=== PATIENT | male | born 1990 | race Caucasian/White ===

== ENCOUNTER 2019-07-16 09:17 | Outpatient (CLI) | payer BC, SELFPAY ==
[2019-07-17 15:31] LABS: COVID-19 RT-PCR Result NEGATIVE (Negative)
== END 2019-07-16 09:37 ==
PROVIDERS: PCP Nurse Practitioner; Visit Provider Nurse Practitioner
DX: J02.9 Acute pharyngitis, unspecified (principal); R05 Cough; R50.9 Fever, unspecified
CPT/HCPCS: U0003

== ENCOUNTER 2020-06-23 04:04 | Outpatient (CLI) | payer BC, SELFPAY ==
[2020-06-23 10:20] LABS: HCT 48.8 % (40.0-50.0); HGB 16.2 g/dL (13.5-17.5); MCH 27.4 pg (27.0-33.0); MCHC 33.2 % (32.0-36.0); MCV 82.6 fL (80-95); MPV 10.9 fL (8.0-11.0); Platelet Count 306 10^3/uL (130-400); RBC 5.91 10^6/uL (4.36-5.78); RDW 12.4 % (11.8-14.1); RDW-SD 37.6 fL; WBC 9.44 10^3/uL (4.4-10.8)
[2020-06-23 11:52] LABS: ALT 41 U/L (16-63); AST 10 U/L (15-37); Albumin 3.9 g/dL (3.4-5.0); Alkaline Phosphatase 117 U/L (46-116); Anion Gap 8.7 mmol/L (3-11); BUN 13 mg/dL (7-18); Bilirubin, Total 0.3 mg/dL (0.2-1.0); CO2 28.3 mmol/L (21.0-32.0); CREATININE 1.2 mg/dL (0.70-1.30); Calcium 9.2 mg/dL (8.5-10.1); Chloride 107 mmol/L (98-107); Ferritin 181 ng/mL (26-388); Glucose 113 mg/dL (74-106); Potassium 4.4 mmol/L (3.5-5.1); Sodium 144 mmol/L (136-145); TSH (W/Ref FT4) 2.38 uIU/mL (0.36-3.74); Total Protein 7.4 g/dL (6.4-8.2); Vitamin B12 502 pg/mL (193-986)
== END 2020-06-23 04:05 | disposition home or self-care (01) ==
LOC: LBO 04:04
PROVIDERS: PCP Nurse Practitioner; Visit Provider Nurse Practitioner
DX: I10 Essential (primary) hypertension (principal); R53.83 Other fatigue; F33.41 Major depressive disorder, recurrent, in partial remission
CPT/HCPCS: 36415; 80053; 85027; 82607; 82728; 84443

== ENCOUNTER 2020-08-29 11:51 | Outpatient (RCR) | payer BC, SELFPAY ==
--- NOTE | 2020-08-29 16:00 | HOLTER_ITS ---
APPROVED REPORT Conclusion This is a 48-hour Holter monitor ordered for indication of heart racing. The patient was in normal sinus rhythm for the majority of the recording with an average heart rate o f 85 bpm. There were no episodes of ventricular tachycardia nor any episodes of supraventricular tachycardia. There were rare PACs/PVCs. There were no episodes of atrial fibrillation, no pauses greater than 3 seconds and no evidence of hi gh degree heart block. There were 3 patient triggered events associated with chest pain/pressure none of which were associat ed with significant arrhythmia or ectopy.
== END 2020-08-31 23:59 | disposition home or self-care (01) ==
LOC: RT 11:51
PROVIDERS: PCP Nurse Practitioner; Visit Provider Nurse Practitioner
DX: R06.02 Shortness of breath (principal); R00.0 Tachycardia, unspecified
CPT/HCPCS: 93225; 93226

== ENCOUNTER 2020-08-29 15:38 | Outpatient (CLI) | payer BC, SELFPAY ==
--- NOTE | 2020-08-29 15:07 | DI.US_ITS ---
APPROVED REPORT EXAM: Comprehensive 2D, Doppler, and color-flow Echocardiogram Patient Location: Out-Patient Straddle Buggy Operator: Wilma Pena RDCS (AE) Indications: Episode of racing heart, SOB, murmur, Tachycardia Other Information Study Quality: Adequate Conclusion Left Ventricle : The left ventricle is normal size. The left ventricular systolic function is normal. The left ventricular ejection fraction is within the normal range. There is normal left ventricular wall thickness. There is normal LV segmental wall motion. The left ventricular diastolic function is normal. LVEF is 60-65%. Right Ventricle : The right ventricle is normal size. The right ventricular systolic function is norm al. Atria : The left atrium size is normal. The right atrium size is normal. Valves: There are no hemodynamically significant valvular lesions. Great Vessels : The aortic root is normal in size. The ascending aorta is normal in size. Aortic arch is normal in caliber. IVC is normal in size and collapses >50% with inspiration. Please see remainder of study for further details. Wall motion Left Ventricle The left ventricle is normal size. The left ventricular systolic function is normal. The left ventric ular ejection fraction is within the normal range. There is normal left ventricular wall thickness. T here is normal LV segmental wall motion. The left ventricular diastolic function is normal. There is no ventricular septal defect visualized. LVEF is 60-65%. Right Ventricle The right ventricle is normal size. The right ventricular systolic function is normal. Atria The left atrium size is normal. The right atrium size is normal. The interatrial septum is intact wit h no evidence for an atrial septal defect. Aortic Valve The aortic valve is normal in structure. There is no aortic valvular stenosis. No aortic regurgitatio n is present. Mitral Valve The mitral valve is normal in structure. No evidence of mitral valve stenosis. Trace mitral regurgita tion. Tricuspid Valve The tricuspid valve is normal in structure. There is no tricuspid valve stenosis. Trace tricuspid reg urgitation. Unable to assess PA pressure. Pulmonic Valve The pulmonary valve is normal in structure. There is no pulmonic valvular stenosis. There is no pulmo brice valvular regurgitation. Great Vessels The aortic root is normal in size. The ascending aorta is normal in size. Aortic arch is normal in ca liber. IVC is normal in size and collapses >50% with inspiration. Pericardium There is no pericardial effusion. 2D Dimensions IVSD d PLAX 0.98 cm M: 0.6-1.2 LV Vol A2C d MOD 94.5 mL LVPW d PLAX 0.98 cm M: 0.6 - 1.2 LV Vol A4C d MOD 106.9 mL LVID d PLAX 5.12 cm M: 4.2 - 5.8 LA vol/ BSA A2C s A-L 12.5 mL/m2 LVDs 3.40 cm M: 2.5 - 4.0 LA vol/ BSA A4C s A-L 13.2 mL/m2 Ao Root d 2.38 cm M: 3.1 - 3.7 LA Vol/ BSA Biplane s A-L 13.3 mL/m2 RA Area A4C 12.06 cm2 LA Area A4C s MOD 14.56 cm2 RA Vol/ BSA A4C s A-L 10.7 mL/m2 LA Area A2C s MOD 13.67 cm2 Ao Asc Diam d 2.61 cm M: 2.6 - 3.4 LV EF A4C MOD 60.6 % LV EF Teichholz 61.9 % LV EF A2C MOD 65.9 % LVEF (Dewey's) 62.79 % M: 52 - 72 LV EF Biplane MOD 62.8 % LV Volume 70.70 mL M: 62 - 150 SV 63.43 mL LV Volume Index 28.28 mL/m2 M: 34 - 74 SV Index 25.37 mL/m2 LV Vol Biplane MOD 101.0 mL FS 33.50 % M-Mode TAPSE 1.94 cm (M/F) >1.7 LV Diastology MV E' medial 0.105 (>0.07 m/s) E/A Ratio 1.4 LV E/e MED 8.35 (<14) MV E Vmax 0.88 (0.4-1.3 m/s) MV E' lateral 0.134 (>0.1 m/s) MV A Vmax 0.65 (0.4-1.3 m/s) LV E/e LAT 6.50 (<14) MV E/A Ratio 1.35 MV E/E' medial 8.37 MV E/E' lateral 6.55 Aortic Valve LVOT Area 2.92 cm2 AoV Area Vmax 2.08 cm2 LVOT Vmax 1.05 m/s AoV Area/ BSA (Vmax) 0.83 cm2/m2 LVOT Mean Kaden. 0.69 m/s JAN Mean Kaden. 1.83 cm2 LVOT Peak Grad 4.4 mmHg JAN Mean Kaden. Index 0.73 cm2/m2 LVOT Mean Grad 2.2 mmHg LVOT VTI 0.168 m LVOT Diam s 1.90 cm AoV Vmax 1.47 m/s Velocity Ratio 0.71 AoV Mean Kaden. 1.10 m/s AoV Peak Grad 8.7 mmHg LVOT SV 49.19 mL AoV Mean Grad 5.2 mmHg AoV VTI 0.267 m AoV Area VTI 1.84 cm2 AoV Area/ BSA (VTI) 0.74 cm/m2 Mitral Valve MV DT 173 (160-240 msec) MV PHT 50 msec MV Area PHT 4.39 cm2 MV VTI 0.173 m MV VTI Annulus 0.178 m MV Area VTI 2.91 (4.0-6.0 cm2) Pulmonary Valve PV Vmax 1.05 (0.5-1.5 m/s) RVOT Peak Gr. 3.77 mmHg PV Peak Grad 4.4 mmHg RVOT Mean Gr. 1.90 mmHg PV Mean Grad 2.6 mmHg RVOT VTI 0.187 m PV VTI 0.199 m RVOT Vmax 0.97 m/s
== END 2020-08-29 15:58 ==
PROVIDERS: PCP Nurse Practitioner; Visit Provider Nurse Practitioner
DX: R00.0 Tachycardia, unspecified (principal); R06.02 Shortness of breath; R01.1 Cardiac murmur, unspecified
CPT/HCPCS: 93306

== ENCOUNTER 2021-07-25 11:59 | Day surgery (SDC) | payer BC, MEDICAID, SELFPAY ==
[2021-07-25] MEDS: Lidocaine/Prilocaine Cream 5 GM TUBE TP (12:12)
[2021-07-25 12:19] VITALS: BP 130/78; PULSE 80; RESP 20; TEMP 36.7; O2SAT 97
[2021-07-25] MEDS: Sodium Bicarbonate 50 MEQ/50 ML VIAL (12:48)
[2021-07-25] MEDS: Lidocaine 1% Multi-Dose W/EPI 1/100,000 50 ML VIAL (12:48)
--- NOTE | 2021-07-25 12:57 | W.PM.DSUDISC ---
Discharge Plan Disposition Patient Disposition: HOME Condition: Good Discharge Details Reason For Visit: THROMBOSED HEMORRHOID Attending Provider: Etelvina Stallworth Primary Care Provider: Geena Andrea Home Meds and New Rx's Prescriptions: New dibucaine 1 % ointment 1 applic PA QID PRNQty: 56 3RF Continued D3 Plus K2 Dots 1000-90 unit-mcg tablet,disintegrating PO meclizine 25 mg tablet 25 mg PO TID Qty: 90 3RF dextroamphetamine-amphetamine 20 mg capsule,extended release 24hr 20 mg PO DAILY MDD 20mg Qty: 30 0RF dextroamphetamine-amphetamine [Adderall XR] 20 mg capsule,extended release 24hr 20 mg PO DAILY MDD 20mg Qty: 30 0RF dextroamphetamine-amphetamine 20 mg capsule,extended release 24hr 20 mg PO DAILY MDD 20mg Qty: 30 0RF bupropion HCl [Wellbutrin XL] 150 mg tablet extended release 24 hr 150 mg PO QAM Qty: 90 3RF Rx Instructions: Take with the 300mg tab for a total of 450mg daily. bupropion HCl [Wellbutrin XL] 300 mg tablet extended release 24 hr 300 mg PO QAM Qty: 90 3RF hydrocortisone acetate [Anusol-HC] 25 mg suppository 25 mg PA BID Qty: 24 1RF hydrocortisone [Anusol-HC] 2.5 % cream with perineal applicator 1 applic PA BID-QID PRN (Reason: hemorrhoids) Qty: 30 1RF Rx Instructions: Trial if no suppository available hydrocortisone acetate 30 mg suppository 30 mg PA BID Qty: 12 1RF Rx Instructions: Trial x 1 week prazosin 1 mg capsule 2 mg PO QHS Qty: 180 3RF Discharge Instructions Additional Instructions: Home Care Instructions after Rectal Surgery Pain control:? Ibuprofen 600mg 6hrs (take w/ food. Do not take on an empty stomach) and Tylenol 1000mg by mouth (ibuprofen 400-600mg) every 8 hours.? Do not take if you have ulcers or sensitivity to aspirin.? Do not take Tylenol if you have hepatitis or liver failure. Alternate the Tylenol and ibuprofen.? Take pain meds continuously for the first 72hrs.? After 72hrs, you can take as needed if you are having pain.? ? You also have a prescription for Dibucaine ointment that you can use on the incision. How to prevent constipation: The first bowel movement after surgery will be painful. Do not let yourself get constipated. Stay on a stool softener for the first two weeks after surgery. ?It is recommended that you use a fiber supplement (Metamucil, Citrucel) daily (1 tablespoon in 8 oz of water). If you do not have a bowel movement daily, use Milk of Magnesia or Miralax. ? You will have bleeding or drainage after rectal surgery; especially when you move your bowels. Use a sanitary napkin to collect the discharge. If you are passing large clots or having to change the pad more than every 4 hours, call the clinic or go to the ER. You may experience spasms in the rectal muscles. This is normal after surgery and last for about two weeks. They can become more intense with bowel movements. The best remedy is to soak in a bathtub of plain warm water- no Epsom salts, essential oil, soap,etc..? It takes about 10 minutes further the spasm to stop.? You may want to do this after BM as well. It is ok to shower. Avoid soap on the surgical area. Use a pillow to sit on. Follow a mild bland diet. Avoid alcohol, spicy food, citrus, and tomatoes. Avoid strenuous activity (running, jogging, and power walking, swimming, weight lifting) for two weeks. No lifting over 20 pounds for 2 wks. Follow up in surgery clinic in 2 weeks time: 08/14 at 1:15pm. Office: [phone] ? ? Activity:: see above Diet:: As Tolerated Discharge Orders Discharge Orders: Discharge Order (Routine); Ordered 07/25/21 Ordered By: Etelvina Stallworth
--- NOTE | 2021-07-25 22:26 | W.PM.OP ---
Date of service: 07/25/21 Time of Service: 13:00 Operative Note Operative Note DATE OF PROCEDURE: 07/25/21 PRE-OP DIAGNOSIS: Thrombosed hemorrhoid PROCEDURE: Incision and drainage of external thrombosed hemorrhoid SURGEON: Etelvina Stallworth ANESTHESIA TYPE: Local By Surgeon Refer to Anesthesia Record ESTIMATED BLOOD LOSS: 1 PATHOLOGY: none sent COMPLICATIONS: None Patient was transported to: same day Patient's condition: stable Procedure Description: Patient has a external thrombosed hemorrhoid that has not resolved in 3 weeks time. It continues to give him pain and he would like it excised. Informed consent is obtained explaining risks and benefits of the procedure including not limited to bleeding, infection, recurrence, complications of anesthesia, damage to sphincters resulting in loss of control or stricture, complications of anesthesia, and other unknown problems. Emla cream was applied to the anal area preop. Patient is then brought to the procedure room and placed in the left lateral position. The areas prepped and draped the usual sterile fashion using a Betadine scrub solution. Timeout was performed. The areas anesthetized with 10 cc of 1% lidocaine with epinephrine buffered. 1/2 inch elliptical incision is made across the thrombosed hemorrhoid with a #11 blade. The clot is expressed. The wound is irrigated. There is no further clot. There is no bleeding noted. Sterile dressing is applied. Patient tolerated procedure well without complications and transferred to same-day surgery. He was given instructions in wound care activity and warning signs. He will follow-up in 2 weeks. FMLA paperwork completed. He is instructed to use sits baths and avoid complications and take MiraLAX if needed. If he has any questions or concerns to please contact the office.
== END 2021-07-25 13:29 | disposition home or self-care (01) ==
PROVIDERS: PCP Nurse Practitioner; Visit Provider Surgery
PROC: (CPT 46083; principal; 2021-07-25 12:30)
DX: K64.5 Perianal venous thrombosis (principal)
CPT/HCPCS: 46083

== ENCOUNTER 2021-08-17 08:39 | Outpatient (CLI) | payer BC, MEDICAID, SELFPAY ==
--- NOTE | 2021-08-17 08:30 | RT.EKG_ITS ---
APPROVED REPORT Exam: Resting ECG Reason for Exam: medication monitoring Patient Location: O HR:82 bpm ECG Measurements Heart Rate 82 AXIS AR 168 P 81 QRSd 92 QRS 38 QT 363 T 32 QTc 424 Conclusion Sinus rhythm...normal P axis, V-rate 60- 99 Probable left atrial enlargement...P >50mS, <-0.10mV V1 Otherwise normal
== END 2021-08-17 08:40 | disposition home or self-care (01) ==
LOC: DI.KIM 08:40
PROVIDERS: PCP Nurse Practitioner; Visit Provider Nurse Practitioner
DX: Z51.81 Encounter for therapeutic drug level monitoring (principal)
CPT/HCPCS: 93010

== ENCOUNTER 2021-08-24 03:13 | Outpatient (CLI) | payer BC, MEDICAID, SELFPAY ==
[2021-08-24 10:09] LABS: ALT 41 U/L (16-63); AST 15 U/L (15-37); Albumin 3.9 g/dL (3.4-5.0); Alkaline Phosphatase 93 U/L (46-116); Anion Gap 7.6 mmol/L (3-11); BUN 8 mg/dL (7-18); Bilirubin, Total 0.8 mg/dL (0.2-1.0); CO2 30.4 mmol/L (21.0-32.0); CREATININE 1.1 mg/dL (0.70-1.30); Calculated LDL 108 mg/dL (<100); Chloride 104 mmol/L (98-107); Cholesterol 171 mg/dL (<200); Glucose 103 mg/dL (74-106); HDL Cholesterol 37 mg/dL (40-60); Potassium 3.6 mmol/L (3.5-5.1); Sodium 142 mmol/L (136-145); Total Protein 7.7 g/dL (6.4-8.2); Triglyceride 131 mg/dL (<150)
== END 2021-08-24 03:14 | disposition home or self-care (01) ==
LOC: LBO 03:13
PROVIDERS: PCP Nurse Practitioner; Visit Provider Nurse Practitioner
DX: Z13.220 Encounter for screening for lipoid disorders (principal)
CPT/HCPCS: 36415; 80053; 80061

== ENCOUNTER 2022-04-24 02:09 | Outpatient (CLI) | payer OTHER, MEDICAID, SELFPAY ==
[2022-04-24 11:05] LABS: HGB 16.4 g/dL (13.5-17.5); MCH 26.7 pg (27.0-33.0); MCHC 32.8 % (32.0-36.0); MCV 81 fL (80-95); MPV 10.9 fL (8.0-11.0); Platelet Count 318 10^3/uL (130-400); RDW 12.6 % (11.8-14.1); RDW-SD 36.8 fL; WBC 8.21 10^3/uL (4.4-10.8)
[2022-04-24 11:15] LABS: RBC 6.15 10^6/uL (4.36-5.78)
[2022-04-24 12:05] LABS: Iron 81 ug/dL (65-175); Total Iron Binding Capacity 270 ug/dL (250-450)
[2022-04-24 12:18] LABS: ALT 40 U/L (16-63); AST 16 U/L (15-37); Albumin 4.1 g/dL (3.4-5.0); Alkaline Phosphatase 106 U/L (46-116); Anion Gap 10.8 mmol/L (3-11); BUN 8 mg/dL (7-18); Bilirubin, Total 0.6 mg/dL (0.2-1.0); CO2 26.2 mmol/L (21.0-32.0); CREATININE 1.1 mg/dL (0.70-1.30); Calcium 9.4 mg/dL (8.5-10.1); Chloride 105 mmol/L (98-107); Estimated GFR 92.04 (mL/min/1.73m2); Ferritin 144 ng/mL (26-388); Glucose 119 mg/dL (74-106); Potassium 3.9 mmol/L (3.5-5.1); Sodium 142 mmol/L (136-145); TSH (W/Ref FT4) 2.25 uIU/mL (0.36-3.74); Total Protein 7.9 g/dL (6.4-8.2); Vitamin B12 1458 pg/mL (193-986)
[2022-04-25 12:38] LABS: ANA Interpretation Negative (Negative)
== END 2022-04-24 02:10 | disposition home or self-care (01) ==
LOC: LBO 02:09
PROVIDERS: PCP Nurse Practitioner; Referring Provider Nurse Practitioner; Visit Provider Nurse Practitioner
DX: R20.9 Unspecified disturbances of skin sensation (principal); R42 Dizziness and giddiness; R53.83 Other fatigue
CPT/HCPCS: 36415; 80053; 85027; 82607; 82728; 83540; 83550; 84443; 86038

== ENCOUNTER 2022-07-31 04:17 | Outpatient (CLI) | payer OTHER, MEDICAID, SELFPAY ==
[2022-07-31 11:37] LABS: Abs Immature Grans 0.03 10^3/uL (0.0-0.06); Absolute Basophil Count 0.07 10^3/uL (0.0-0.2); Absolute Eosinophil Count 0.17 10^3/uL (0.0-0.7); Absolute Lymphocyte Count 2.41 10^3/uL (1.2-3.4); Absolute Monocyte Count 0.51 10^3/uL (0.1-0.8); Absolute Neutrophil Count 6.28 10^3/uL (1.2-6.7); Basophils % 0.7; Eosinophils % 1.8; HCT 48.2 % (40.0-50.0); HGB 15.9 g/dL (13.5-17.5); Immature Grans % 0.3; Lymphocytes % 25.4; MCV 82 fL (80-95); MPV 11.1 fL (8.0-11.0); Monocytes % 5.4; Neutrophils % 66.4; Platelet Count 317 10^3/uL (130-400); RBC 5.89 10^6/uL (4.36-5.78); RDW 12.8 % (11.8-14.1); RDW-SD 38.3 fL; WBC 9.47 10^3/uL (4.4-10.8)
[2022-08-01 18:47] LABS: Erythropoietin 7.9 mIU/mL (2.6 - 18.5)
== END 2022-07-31 04:18 | disposition home or self-care (01) ==
LOC: LBO 04:17
PROVIDERS: PCP Nurse Practitioner; Visit Provider Nurse Practitioner
DX: R71.8 Other abnormality of red blood cells (principal)
CPT/HCPCS: 36415; 82668; 85025

== ENCOUNTER 2023-04-08 13:49 | Emergency (ER) | payer OTHER, SELFPAY ==
[2023-04-08 13:54] VITALS: BP 155/86; PULSE 111; RESP 20; O2SAT 96
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
[2023-04-08] MEDS: LORazepam 1 MG TAB PO ×2 (15:17→22:29)
[2023-04-08 16:28] LABS: Source Nasal/Nares
[2023-04-08 17:00] LABS: COVID-19 PCR Negative (Negative)
[2023-04-08 17:03] LABS: *AMPHETAMINES SCREEN URINE Negative (Negative); *BARBITURATES SCREEN URINE Negative (Negative); *BENZODIAZEPINES SCREEN URINE Negative (Negative); Cannabinoids THC Positive (Negative); Cocaine Screen,Urine Negative (Negative); METHADONE URINE SCREEN Negative (Negative); OPIATES URINE SCREEN Negative (Negative)
[2023-04-08 17:04] LABS: Tricyclic Antidepressants Negative (Negative)
[2023-04-08 18:30] VITALS: PULSE 97; RESP 18; O2SAT 99
[2023-04-08] MEDS: Meclizine 25 MG TAB PO (22:29)
[2023-04-09] MEDS: Meclizine 25 MG TAB PO (10:37)
[2023-04-09] MEDS: buPROPion 100 MG TAB PO (10:38)
--- NOTE | 2023-04-09 10:56 | W.EDPROG ---
Date of service: 04/09/23 Time of Service: 10:56 Medical Decision Making Patient excepted to care bed. Resting comfortably no acute distress. Quality:SDOH Health Related Social Needs: No Data to Display Sign Out Sign Out Data: Sign Out Comment: 33yo M, SI, voluntary, medically cleared and home meds in. Awaiting care bed. Last updated by Sabrina Haynes MD at 04/08/23 22:17 Sign Out Comment: Suicidal, voluntary, medically cleared. Awaiting care bed Last updated by Joes Ornelas DO at 04/09/23 07:26 Discharge Plan Disposition Patient Disposition: Other Disposition Not Listed Other Facility: Care Bed Condition: Stable Discharge Details Chief Complaint: PsychEval Clinical Impression: Depression Primary Care Provider: Geena Andrea ED Provider: Christiano Alan Home Meds and New Rx's Prescriptions: No Action meclizine 25 mg tablet 25 mg PO TID Qty: 90 3RF dextroamphetamine-amphetamine 10 mg capsule,extended release 24hr 10 mg PO DAILY MDD 10mg Qty: 28 0RF vortioxetine 10 mg tablet 10 mg PO DAILY Qty: 90 3RF bupropion HCl 100 mg tablet sustained-release 12 hr 100 mg PO QAM Qty: 90 3RF albuterol sulfate 90 mcg/actuation HFA aerosol inhaler 2 puff inhalation QID PRN (Reason: shortness of breath or wheezing) Qty: 8.5 12RF
== END 2023-04-09 11:14 | disposition other institution (70) ==
PROVIDERS: Student in an Organized Health Care Education/Training Program; Emergency Provider Emergency Medicine; PCP Nurse Practitioner
DX: R45.851 Suicidal ideations (principal); F41.9 Anxiety disorder, unspecified; F32.A Depression, unspecified; Z11.52 Encounter for screening for COVID-19; Z91.141 Patient's other noncompliance with medication regimen due to financial hardship
CPT/HCPCS: 00123; 36415; 80307; 87426; 87635; 99285

== ENCOUNTER 2025-01-27 02:17 | Outpatient (CLI) | payer MEDICAID, SELFPAY ==
[2025-01-27 10:55] LABS: Abs Immature Grans 0.04 10^3/uL (0.0-0.06); HCT 48.3 % (40.0-50.0); HGB 15.7 g/dL (13.5-17.5); Immature Grans % 0.4 %; MCH 26.3 pg (27.0-33.0); MCHC 32.5 % (32.0-36.0); MCV 81 fL (80-95); MPV 10.6 fL (8.0-11.0); Platelet Count 320 10^3/uL (130-400); RBC 5.96 10^6/uL (4.36-5.78); RDW 12.8 % (11.8-14.1); RDW-SD 37.2 fL; WBC 9.73 10^3/uL (4.4-10.8)
[2025-01-27 12:17] LABS: Folate 14.1 ng/mL (>5.38)
[2025-01-27 12:56] LABS: Magnesium 2.1 mg/dL (1.6-2.6)
[2025-01-27 12:58] LABS: ALT 37 U/L (10-49); AST 21 U/L (<34); Albumin 4.8 g/dL (3.2-5.0); Alkaline Phosphatase 107 U/L (46-116); Anion Gap 6.5 mmol/L (3-11); BUN 11 mg/dL (9-23); Bilirubin, Total 0.80 mg/dL (0.2-1.2); CO2 27.5 mmol/L (20.0-31.0); Calcium 9.6 mg/dL (8.3-10.6); Chloride 107 mmol/L (98-107); Cholesterol 202 mg/dL (<200); Glucose 100 mg/dL (74-106); HDL Cholesterol 42 mg/dL (>40); Potassium 3.9 mmol/L (3.5-5.1); Sodium 141 mmol/L (136-145); Total Protein 8.1 g/dL (5.7-8.2)
[2025-01-27 13:00] LABS: Vitamin D 25 Total 13 ng/mL (30-100)
[2025-01-27 13:01] LABS: TSH (W/Ref FT4) 3.36 uIU/mL (0.55-4.78)
== END 2025-01-27 02:18 | disposition home or self-care (01) ==
LOC: LBO 02:17
DX: R55 Syncope and collapse (principal)
CPT/HCPCS: 36415; 80053; 80061; 82306; 82746; 83735; 84443; 85025